=== PATIENT | female | born 1985 | race Caucasian/White ===

== ENCOUNTER 2016-07-19 20:38 | Emergency (ER) | payer OTHER ==
[~2016-07-19] VITALS: Ht 165.1 cm; Wt 86.1 kg
[~2016-07-19 20:38] MED LIST: AMOX500C2 PO; BACL10TA PO; GABA-338 PO; NEOM10DR7 LEFT EAR
--- OUTSIDE RECORDS SUMMARY | 2016-07-19 20:49 | XMS REPORT | Referral Summary ---
Author Author [facility] Organization [facility] Address Unknown Phone Unavailable Care Team Providers Care Fishing Worker Name Role Phone Drew Elam Primary Care Physician [phone] Encounter VC Date(s): 09/29/14 - 09/29/14 [facility] [address] [place] [address] Discharge Diagnosis: Chronic low back pain Final: Other chronic pain Final: LUMBAGO Discharge Disposition: 01-Home or Self Care Attending Physician: Ralf Lerner MD Admitting Physician: Ralf Lerner MD Vital Signs Most recent to 1 oldest [Reference Range]: Temperature Oral 37 degC [35.8-37.3 degC] (09/29/14 3:23 PM) Peripheral Pulse 89 bpm Rate [60-100 bpm] (09/29/14 4:28 PM) Respiratory Rate 18 br/min [14-20 br/min] (09/29/14 4:28 PM) Blood Pressure 129/91 mmHg [90-140/60-90 mmHg] (09/29/14 4:28 PM) SpO2 97 % (09/29/14 4:28 PM) Problem List Condition Effective Dates Status Health Status Informant Chicken Resolved pox(Confirmed) Ear Resolved infections(Confirmed ) Gastritis(Confirmed) Active Irritable bowel Resolved syndrome(Confirmed) IBS (irritable bowel Active syndrome)(Confirmed) Obesity(Confirmed) Active patient Allergies, Adverse Reactions, Alerts Substance Reaction Severity Status aspirin STOMACH UPSET Active caffeine STOMACH UPSET Active codeine STOMACH UPSET Active predniSONE Active Medications Cymbalta 60 mg oral delayed release capsule 1 caps, Oral, Daily, do not crush or chew, # 30 caps, 0 Refill(s), Pharmacy: [id number], 1 caps Oral Daily,Instr:do not crush or chew Start Date: 08/25/14 Status: Ordered ibuprofen 600 mg oral tablet 1 tabs, Oral, TID, with food or milk, # 90 tabs, 3 Refill(s), Pharmacy: [id number], 1 tabs Oral TID,Instr:with food or milk Start Date: 08/25/14 Status: Ordered Percocet 5/325 oral tablet 1 tabs, Oral, q6hr, 0 Refill(s) Start Date: 08/25/14 Status: Ordered tiZANidine 4 mg oral tablet 2 tabs, Oral, q8hr, as needed for muscle spasm, # 30 tabs, 1 Refill(s), Pharmacy : [id number], 2 tabs Oral q8hr,PRN:as needed for muscle spasm Start Date: 08/25/14 Status: Ordered Results No data available for this section Immunizations No data available for this section Procedures Procedure Date Related Diagnosis Body Site Bilateral coblation tonsillectomy Cholecystectomy Cortical mastoidectomy1 Exteriorization of pilonidal cyst or sinus Knee Surgery Release of carpal tunnel for median nerve decompression2 1left 2bilaterally Social History Social History Type Response Smoking Status Current every day smoker; Tobacco use per day: 1 Pack; Number of years: 9; Ready to change: No Assessment and Plan No data available for this section
--- OUTSIDE RECORDS SUMMARY | 2016-07-19 20:49 | XMS REPORT ---
Author Author Randolph Morley Organization [employer] Address Unknown Phone Unavailable Care Team Providers Care Software Team Leader Name Role Phone Randolph Morley CP Unavailable Allergies, Adverse Reactions, Alerts Substance Reaction Event Type Tylenol # 3 upset stomach Drug Allergy PEANUT Info Not Available Drug Allergy Demerol Info Not Available Drug Allergy Aspirin Info Not Available Drug Allergy Problems Problem Type Condition Code Onset Dates Condition Status Assessment Abscess of right axilla L02.411 Active Problem Abscess of right axilla L02.411 Active Medications No Known Medications Procedures Procedure Coding System Code Date Office visit estab lev 4 CPT-4 20209 Feb 07, 2016 Vital Signs Date/Time: Feb 07, 2016 Height - in Weight 186.9 lbs Temperature 97.1 F Cardiac Monitoring Heart Rate 61 /min Blood Pressure Diastolic 82 mm Hg Blood Pressure Systolic 130 mm Hg Results No Known Results Summary Purpose [employer] Submission
--- OUTSIDE RECORDS SUMMARY | 2016-07-19 20:49 | XMS REPORT | CCD ---
Author Author MARCI YUNG Organization Unknown Address [address], [place] [id number] Phone 0 Care Team Providers Care Pipe Coremaker Name Role Phone Yina FRAZIER Attending Physician 0 Yina FRAZIER Primary Surgeon 0 Vital Signs Vital Sign Value Unit Date/Time Recent/Initial? Weight Measured 190 lbs 10/17/2014 21:02 Initial VS Height 65 in 2014 21:02 Initial VS BMI (Body Mass Index) 31.62 kg/m^2 10/17/2014 21:02 Initial VS BSA (Body Surface Area) 1.99 m^2 10/17/2014 21:02 Initial VS Allergies Allergy Code Allergy Type Reaction Status CODEINE 2670 Drug allergy GASTRIC IRRITATION Active PEANUTS 0 Food allergy ANAPHYLAXIS Active MORPHINE 7052 Drug allergy NAUSEA Active ASPIRIN 1191 Drug allergy GASTRIC IRRITATION Active Procedures Unknown or Not Available. History of Immunizations Immunization Code Date Hep B, adult 43 02/16/2013 influenza, unspecified formulation 88 05/2012 tetanus toxoid, unspecified formulation 112 11/16/2012 Problems Unknown or Not Available. Results Unknown or Not Available. Active Medications Unknown or Not Available. Medications Administered During Visit Unknown or Not Available. Encounters Encounter Diagnosis Diagnosis Code Start Date CHR ALLRG CONJUNCTIV NEC 97217 2014 Social History Smoking Status Code Start Date End Date Current every day smoker [id number] Patient Decision Aids Unknown or Not Available. Discharge Instructions You were admitted to [facility] on 10/17/2014 with a principal diagnosis of CHR ALLRG CONJUNCTIV NEC. You were discharged from [facility] on 10/17/2014. Should you have any questions prior to discharge, please contact a member of your healthcare team. If you have left the hospital and have any questions, please contact your primary care physician. Chief Complaint and Reason For Visit Chief Complaint Date of Onset Redness or discharge of eye 10/17/2014 Function Status Unknown or Not Available. Plan of Care Unknown or Not Available. Referral/Transition of Care Unknown or Not Available.
--- OUTSIDE RECORDS SUMMARY | 2016-07-19 20:49 | XMS REPORT | Continuity of Care Document ---
Demographics Preferred Language Unknown Marital Status Unknown Gnosticism Affiliation Unknown Race Unknown Ethnic Group Unknown Author Author [facility] Organization [facility] Address Unknown Phone Unavailable Allergies Active Description Code Type Severity Reaction Onset Reported/Identified Relationship to Patient Clinical Status Yes acetaminophen acetaminophen Drug Allergy Unknown UNKNOWN 12/06/2013 Yes codeine codeine Drug Allergy Unknown UNKNOWN 12/06/2013 Yes aspirin aspirin Drug Allergy Mild REECE STOMACH 01/15/2016 Yes meperidine meperidine Drug Allergy Moderate HIVES 01/18/2016 Medications Problems Date Dx Coded Attending Type Code Diagnosis Diagnosed By 01/16/2016 LUIS M MCFARLAND MD K29.70 GASTRITIS, UNSPECIFIED, WITHOUT BLEEDING 01/16/2016 LUIS M MCFARLAND MD K58.9 IRRITABLE BOWEL SYNDROME WITHOUT DIARRHEA 01/16/2016 LUIS M MCFARLAND MD L02.213 CUTANEOUS ABSCESS OF CHEST WALL 01/16/2016 LUIS M MCFARLAND MD L02.411 CUTANEOUS ABSCESS OF RIGHT AXILLA 01/16/2016 LUIS M MCFARLAND MD N61 INFLAMMATORY DISORDERS OF BREAST 01/16/2016 LUIS M MCFARLAND MD T63.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, ACC 01/16/2016 LUIS M MCFARLAND MD Z90.49 ACQUIRED ABSENCE OF OTHER SPECIFIED PARTS OF DIGES Procedures Code Description Performed By Performed On [id number] DRAINAGE OF RIGHT BREAST, OPEN APPROACH LUIS M MCFARLAND MD 01/16/2016 [id number] DRAINAGE OF CHEST WALL, OPEN APPROACH LUIS M MCFARLAND MD 01/16/2016 [id number] PACKING OF CHEST WALL USING PACKING MATERIAL LUIS M MCFARLAND MD 01/16/2016 Results Test Result Range CBC W/DIFF - 03/19/13 20:09 BASOPHIL # 0.1 k/cumm 0.0-0.2 BASOPHIL % 1 % 0-1 EOSINOPHIL # 0.1 k/cumm 0.1-0.5 EOSINOPHIL % 1 % 2-4 GRANULOCYTE # 6.4 k/cumm 2.0-9.0 GRANULOCYTE % 62 % 50-75 LYMPHOCYTE # 2.9 k/cumm 1.0-4.0 LYMPHOCYTE % 29 % 20-30 MEAN CELL HGB 28.0 pg 27.0-33.0 MEAN CELL HGB CONCENTRATION 34.3 g/dL 32.0-37.0 MEAN CELL VOLUME 81.5 fl 80.0-100.0 MONOCYTE # 0.8 k/cumm 0.1-1.0 MONOCYTE % 8 % 4-6 RED BLOOD CELL 5.40 m/cumm 4.00-6.00 RED CELL DISTRIBUTION WIDTH 12.8 % 11.0- 15.6 WHITE BLOOD CELL 10.3 k/cumm 5.0-10.0 HEMOGLOBIN 15.1 gm/dL 12.0-16.0 HEMATOCRIT 44.0 % 37.0-47.0 PLATELET COUNT 302 k/cumm 150-400 HEPATIC FUNCTION PANEL - 03/19/13 20:09 BILI UNCONJUGATED 0.3 mg/dL 0.0-0.7 AST/SGOT 22 Units/L 10-37 ALT/SGPT 40 Units/L < 66 TOTAL PROTEIN 8.7 gm/dL 6.4-8.2 ALBUMIN 4.3 gm/dL 3.4-5.0 BILI TOTAL 0.4 mg/dL 0.0-1.0 ALKALINE PHOSPHATASE TOTAL 96 IU/L 45- 117 BILI CONJUGATED 0.1 mg/dL 0.0-0.3 LIPASE - 03/19/13 20:09 LIPASE 131 Units/L 73-393 CHEM/HEM PROFILE-BEDSIDE - 03/19/13 20:13 POTASSIUM 4.5 mmol/L 3.5-5.3 METHOD Bedside ANION GAP 16 mmol/L 10-20 METHOD Bedside GLUCOSE 81 mg/dL 70-99 BLOOD UREA NITROGEN 11 mg/dL 7-20 CREATININE 0.6 mg/dL 0.6-1.0 HEMOGLOBIN 14.6 gm/dL 12.0-16.0 HEMATOCRIT 43.0 % 37.0-47.0 SODIUM 139 mmol/L 135-148 CHLORIDE 104 mmol/L 98-110 CARBON DIOXIDE 25 mmol/L 21-32 CALCIUM IONIZED 4.8 mg/dL 4.5-5.3 UR TEST - 03/19/13 20:14 UR TEST NEGATIVE NEGATIVE URINALYSIS, ROUTINE - 03/19/13 20:14 UA LEUKOCYTE ESTERASE DIPSTICK NEGATIVE NEGATIVE UA NITRITE DIPSTICK NEGATIVE NEGATIVE UA PROTEIN DIPSTICK NEGATIVE NEGATIVE UA GLUCOSE DIPSTICK NEGATIVE NEGATIVE UA KETONE DIPSTICK NEGATIVE NEGATIVE UA UROBILINOGEN DIPSTICK NORMAL NORMAL UA BILIRUBIN DIPSTICK NEGATIVE NEGATIVE UA BLOOD DIPSTICK NEGATIVE NEGATIVE UA COMMENT UA SPECIFIC GRAVITY 1.025 1.015-1.025 UR PH 5.0 5.0-7.0 UA MICROSCOPIC - 03/19/13 20:14 UA EPITHELIAL CELLS 2+ epi/hpf 0 - 1+ UA MUCUS 2+ NEG TO 1+ UA RBC 0-3 rbc/hpf 0 - 3 UA VOLUME FOR EXAM 12.0 mL (12mL STD) UA WBC 2-5 wbc/hpf 0 - 5 UR TEST - 05/30/13 22:36 UR TEST NEGATIVE NEGATIVE URINALYSIS, ROUTINE - 05/30/13 22:36 UA LEUKOCYTE ESTERASE DIPSTICK NEGATIVE NEGATIVE UA NITRITE DIPSTICK NEGATIVE NEGATIVE UA PROTEIN DIPSTICK TRACE NEGATIVE UA GLUCOSE DIPSTICK NEGATIVE NEGATIVE UA KETONE DIPSTICK NEGATIVE NEGATIVE UA UROBILINOGEN DIPSTICK NORMAL NORMAL UA BILIRUBIN DIPSTICK NEGATIVE NEGATIVE UA BLOOD DIPSTICK NEGATIVE NEGATIVE UA COMMENT UA SPECIFIC GRAVITY 1.015 1.015-1.025 UR PH 6.5 5.0-7.0 UA MICROSCOPIC - 05/30/13 22:36 UA AMORPHOUS SEDIMENT 2+ UA BACTERIA 3+ NEGATIVE UA EPITHELIAL CELLS 2+ epi/hpf 0 - 1+ UA MUCUS 2+ NEG TO 1+ UA RBC 0-3 rbc/hpf 0 - 3 UA VOLUME FOR EXAM 12.0 mL (12mL STD) UA WBC 0 wbc/hpf 0 - 5 CBC W/DIFF - 05/30/13 23:25 EOSINOPHIL # 0.2 k/cumm 0.1-0.5 EOSINOPHIL % 2 % 2-4 GRANULOCYTE # 7.8 k/cumm 2.0-9.0 GRANULOCYTE % 61 % 50-75 LYMPHOCYTE # 3.7 k/cumm 1.0-4.0 LYMPHOCYTE % 29 % 20-30 MEAN CELL HGB 28.2 pg 27.0-33.0 MEAN CELL HGB CONCENTRATION 34.4 g/dL 32.0-37.0 MEAN CELL VOLUME 82.0 fl 80.0-100.0 MONOCYTE # 1.0 k/cumm 0.1-1.0 MONOCYTE % 8 % 4-6 RED BLOOD CELL 4.79 m/cumm 4.00-6.00 RED CELL DISTRIBUTION WIDTH 12.5 % 11.0- 15.6 WHITE BLOOD CELL 12.7 k/cumm 5.0-10.0 HEMOGLOBIN 13.5 gm/dL 12.0-16.0 HEMATOCRIT 39.3 % 37.0-47.0 PLATELET COUNT 317 k/cumm 150-400 WET MOUNT - 05/30/13 23:25 Uncategorized GRAM STAIN - CHLAMYDIA DNA BY PCR - 05/30/13 23:25 Uncategorized CHEM/HEM PROFILE-BEDSIDE - 05/30/13 23:34 POTASSIUM 3.7 mmol/L 3.5-5.3 METHOD Bedside ANION GAP 14 mmol/L 10-20 METHOD Bedside GLUCOSE 104 mg/dL 70-99 BLOOD UREA NITROGEN 6 mg/dL 7-20 CREATININE 0.6 mg/dL 0.6-1.0 HEMOGLOBIN 12.9 gm/dL 12.0-16.0 HEMATOCRIT 38.0 % 37.0-47.0 SODIUM 140 mmol/L 135-148 CHLORIDE 107 mmol/L 98-110 CARBON DIOXIDE 24 mmol/L 21-32 CALCIUM IONIZED 4.6 mg/dL 4.5-5.3 GRAM STAIN - 01/17/16 00:00 Microbiology CBC W/DIFF - 01/17/16 05:53 EOSINOPHIL # 0.3 k/cumm 0.1-0.5 EOSINOPHIL % 3 % 2-4 GRANULOCYTE # 4.9 k/cumm 2.0-9.0 GRANULOCYTE % 57 % 50-75 LYMPHOCYTE # 2.7 k/cumm 1.0-4.0 LYMPHOCYTE % 31 % 20-30 MEAN CELL HGB 27.8 pg 27.0-33.0 MEAN CELL HGB CONCENTRATION 33.8 g/dL 32.0-37.0 MEAN CELL VOLUME 82.2 fl 80.0-100.0 MONOCYTE # 0.7 k/cumm 0.1-1.0 MONOCYTE % 8 % 4-6 RED BLOOD CELL 4.28 m/cumm 4.00-6.00 RED CELL DISTRIBUTION WIDTH 12.7 % 11.0- 15.6 WHITE BLOOD CELL 8.6 k/cumm 5.0-10.0 HEMOGLOBIN 11.9 gm/dL 12.0-16.0 HEMATOCRIT 35.2 % 37.0-47.0 PLATELET COUNT 302 k/cumm 150-400 HEMOGLOBIN A1C - 01/17/16 05:53 HEMOGLOBIN A1C 5.1 % < 5.7 RENAL FUNCTION PANEL - 01/17/16 05:53 POTASSIUM 3.9 mmol/L 3.5-5.3 EST GFR (MDRD) > 60 mL/min > 59 ANION GAP 6 mmol/L 5-15 EST CrCl (CG) > 60 mL/min > 59 GLUCOSE 99 mg/dL 70-99 CALCIUM 8.5 mg/dL 8.5-10.1 BLOOD UREA NITROGEN 7 mg/dL 7-20 CREATININE 0.7 mg/dL 0.6-1.0 SODIUM 140 mmol/L 135-148 CHLORIDE 107 mmol/L 98-110 CARBON DIOXIDE 27 mmol/L 21-32 ALBUMIN 2.8 gm/dL 3.4-5.0 PHOSPHORUS 3.4 mg/dL 2.5-4.9 MAGNESIUM - 01/17/16 05:53 MAGNESIUM 2.3 mg/dL 1.8-2.4 TEST, SERUM - 01/17/16 09:26 TEST, SERUM NEGATIVE NEGATIVE CBC - 01/18/16 05:16 MEAN CELL HGB 27.9 pg 27.0-33.0 MEAN CELL HGB CONCENTRATION 33.6 g/dL 32.0-37.0 MEAN CELL VOLUME 82.9 fl 80.0-100.0 RED BLOOD CELL 4.16 m/cumm 4.00-6.00 RED CELL DISTRIBUTION WIDTH 12.8 % 11.0- 15.6 WHITE BLOOD CELL 8.3 k/cumm 5.0-10.0 HEMOGLOBIN 11.6 gm/dL 12.0-16.0 HEMATOCRIT 34.5 % 37.0-47.0 PLATELET COUNT 312 k/cumm 150-400 CBC - 01/19/16 05:52 MEAN CELL HGB 27.6 pg 27.0-33.0 MEAN CELL HGB CONCENTRATION 33.1 g/dL 32.0-37.0 MEAN CELL VOLUME 83.1 fl 80.0-100.0 RED BLOOD CELL 4.21 m/cumm 4.00-6.00 RED CELL DISTRIBUTION WIDTH 12.7 % 11.0- 15.6 WHITE BLOOD CELL 7.3 k/cumm 5.0-10.0 HEMOGLOBIN 11.6 gm/dL 12.0-16.0 HEMATOCRIT 35.0 % 37.0-47.0 PLATELET COUNT 347 k/cumm 150-400 Encounters ACCT No. Visit Date/Time Discharge Status Pt. Type Provider Facility Loc./Unit Complaint [id number] 07/04/2016 15:11:00 [facility] Unknown [id number] 03/25/2016 14:04:00 ACT Unknown [id number] 01/10/2014 10:37:00 ACT Unknown [id number] 11/25/2013 08:54:00 ACT Unknown
--- OUTSIDE RECORDS SUMMARY | 2016-07-19 20:49 | XMS REPORT | CCD ---
Author Author ERICK GUADALUPE Organization Unknown Address [address], [place] [id number] Phone 0 Care Team Providers Care Clipper Automatic Name Role Phone KIMBERLI HALL Attending Physician 0 KIMBERLI HALL Primary Surgeon 0 Vital Signs Vital Sign Value Unit Date/Time Recent/Initial? Weight Measured 195 lbs 12/06/2015 22:26 Initial VS Height 65 in 2015 22:26 Initial VS BMI (Body Mass Index) 32.45 kg/m^2 12/06/2015 22:26 Initial VS BSA (Body Surface Area) 2.01 m^2 12/06/2015 22:26 Initial VS Allergies Allergy Code Allergy Type [...] Encounters Encounter Diagnosis Diagnosis Code Start Date Pain in right knee [id number] 12/06/2015 Social History Smoking Status Code Start Date End Date Current every day smoker [id number] Patient Decision Aids Unknown or Not Available. Discharge Instructions You were admitted to [facility] on 12/06/2015 21:30 with a principal diagnosis of Pain in right knee You were discharged from [facility] on 12/06/2015 23:50 Should you have any questions prior to discharge, please contact a member of your healthcare team. If you have left the hospital and have any questions, please contact your primary care physician. Chief Complaint and Reason For Visit Chief Complaint Date of Onset HARD LUMP ON LEG Function Status Unknown or Not Available. Plan of Care Unknown or Not Available. Referral/Transition of Care Unknown or Not Available.
--- OUTSIDE RECORDS SUMMARY | 2016-07-19 20:49 | XMS REPORT | CCD ---
Author Author ERICK GUADALUPE Organization Unknown Address [address], [place] [address] Phone 0 Care Team Providers Care Pumper Helper Name Role Phone Tad ANDERSON Attending Physician 0 Tad ANDERSON Primary Surgeon 0 Vital Signs Unknown or Not Available. Allergies Allergy Code Allergy Type Reaction Status PEANUTS 0 Food allergy ANAPHYLAXIS Active ASPIRIN 1191 Drug allergy GASTRIC IRRITATION Active DEMEROL 723040 Drug allergy Active Procedures Unknown or Not Available. History of Immunizations Immunization Code Date Hep B, adult 43 02/16/2013 influenza, unspecified formulation 88 05/2012 tetanus toxoid, unspecified formulation 112 11/16/2012 Problems Unknown or Not Available. Results BASIC METABOLIC - Collect Date/Time: 06/25/2016 16:25 Test Name Code Test Result Test Units Test Ref Range GLUCOSE 130 mg/dL L=70 H=110 BUN 8 mg/dL L=7 H=18 CREATININE 0.69 mg/ dL L=0.60 H=1.30 AGE 30 YEARS GFR 101.3 L=60.0 H=120 SODIUM 144 mmol/L L=136 H=145 POTASSIUM 3.9 mmol/ L L=3.5 H=5.1 CHLORIDE 107 mmol/L L=98 H=107 CO2 29 mmol/L L=21 H=32 CALCIUM 8.7 mg/dL L=8.5 H=10.1 C-REACTIVE PROTEIN - Collect Date/Time: 06/25/2016 16:25 Test Name Code Test Result Test Units Test Ref Range CRP 3 mg/L L=0 H=5 CBC W/ DIFF - Collect Date/Time: 06/25/2016 16:25 Test Name Code Test Result Test Units Test Ref Range WBC 8.1 x10^3 L=4.8 H=10.8 RBC 4.79 x10^6 L=4.20 H=5.40 HEMOGLOBIN 13.3 g/ dL L=12.0 H=16.0 HEMATOCRIT 38.9 % L=37.0 H=47.0 MCV 81 fL L=80 H=100 MCH 27.8 pg L=27.0 H=33.0 MCHC 34.2 g/dL L=33.0 H=37.0 RDW 12.5 % L=11.5 H=14.5 PLATELETS 293 x10^3 L=150 H=450 MPV 7.2 fL L=7.8 H=11.0 NEUTROPHILS 71.1 % L=40.0 H=80.0 LYMPHOCYTES 24.2 % L=20.0 H=45.0 MONOCYTES 3.8 % L=0.0 H=10.0 EOSINOPHILS 0.6 % L=0.0 H=5.0 BASOPHILS 0.3 % L=0.0 H=2.0 REFLEX MAN DIFF NO N /A UA AUTO W/ MICRO - Collect Date/Time: 06/25/2016 16:41 Test Name Code Test Result Test Units Test Ref Range COLOR Yellow N/A NORMAL: Yellow APPEARANCE Clear N/ A NORMAL: Clear GLUCOSE Negative N/ A NORMAL: Negative BILIRUBIN Negative N /A NORMAL: Negative KETONE 15 N/A NORMAL: Negative SPEC GRAVITY 1.025 N /A NORMAL: 1.005-1.030 BLOOD Negative N/A NORMAL: Negative PROTEIN Negative N/ A NORMAL: Negative PH 6.5 N/A NORMAL: 5.0-8.0 UROBILINOGEN 0.2 N/ A NORMAL: Negative NITRITE Negative N/ A NORMAL: Negative LEUKOCYTES Negative N/A NORMAL: Negative MICRO RBC None Seen N/A NORMAL: 0-2 MICRO WBC 0-2 N/A NORMAL: 0-2 BACTERIA 2+ N/A NORMAL: None-Trace EPI CELLS 15-30 N/A NORMAL: 0-15 MUCUS Small N/A NORMAL: None-Small AMORPHOUS None Seen N/A NORMAL: None Seen YEAST None Seen N/A NORMAL: None Seen CRYSTALS None Seen N /A NORMAL: None Seen CAST None Seen N/A NORMAL: None Seen URINE CULTURE? NO N/ A HCG-QUAL URINE - Collect Date/Time: 06/25/2016 16:35 Test Name Code Test Result Test Units Test Ref Range HCG URINE NEGATIVE N /A AEROBIC BACTERIAL CULTURE - Collect Date/Time: 06/25/2016 18:10 Test Name Code Test Result Test Units Test Ref Range SPEC SOURCE L EAR DRAINAG N/A Aerobic Bacterial Culture 634-6 Final report N/A Result 1 6463-4 Staphylococcus aureus N/A Active Medications Unknown or Not Available. Medications Administered During Visit Unknown or Not Available. Encounters Unknown or Not Available. Social History Smoking Status Code Start Date End Date Current every day smoker [id number] Patient Decision Aids Unknown or Not Available. Discharge Instructions You were admitted to [facility] on 06/25/2016 15:24 You had the following tests done: AEROBIC BACTERIAL CULTURE BASIC METABOLIC C-REACTIVE PROTEIN CBC W/ DIFF HCG-QUAL URINE UA AUTO W/ MICRO You were discharged from [facility] on 06/25/2016 17:35 Should you have any questions prior to discharge, please contact a member of your healthcare team. If you have left the hospital and have any questions, please contact your primary care physician. Chief Complaint and Reason For Visit Chief Complaint Date of Onset LEFT EAR PAIN Function Status Unknown or Not Available. Plan of Care Unknown or Not Available. Referral/Transition of Care Unknown or Not Available.
--- OUTSIDE RECORDS SUMMARY | 2016-07-19 20:49 | XMS REPORT | Continuity of Care Document ---
Author Author [facility] Organization [facility] Address Unknown Phone Unavailable Support Name Relationship Address Phone CRISTINE AMARO M.D. Caregiver [employer] [address] [place], [place] [phone] JAZZY CROSS Next Of Kin [address] NO ONE ELSE 11/[birth year]/14 [place] [address] CELL Insurance Providers Payer Name Policy Number Subscriber Name Relationship Self Pay Insurance [employer] 01 Self / Same As Patient Chief Complaint and Reason for Visit Chief Complaint Flank Pain Reason for Visit Acute exacerbation of chronic low back pain Flank pain Cystitis Problems Medical Problems Problem Onset Date Status Acute exacerbation of chronic low back pain Unknown Active Flank pain Unknown Active Cystitis Unknown Active Acute exacerbation of chronic low back pain Unknown Active Medications Medication Dose Route Sig Days/Qty Instructions Order Date Discontinued Date Status Gabapentin 300 Mg PO THREE TIMES A DAY 11/23/14 Active Baclofen 10 Mg PO THREE TIMES A DAY 11/23/14 Active Tramadol Hcl 50 Mg PO Every 8 hours as needed PRN PAIN 10 Qty 11/23/14 11/23/14 Discontinued Sulfamethoxazole-Trimethoprim 1 Tab PO TWICE A DAY For BACTINF 28 Qty 11/23/14 11/23/14 Discontinued Sulfamethoxazole-Trimethoprim 1 Tab PO TWICE A DAY For BACTINF 14 Qty 11/23/14 Active Social History Social History Problem Response Recorded Date/Time Smoking Status Heavy Tobacco Smoker 11/23/2014 8:57pm Query Response Start Date Stop Date Smoking Status Heavy Tobacco Smoker Hospital Discharge Instructions No hospital discharge instructions. Plan of Care Discharge Date 11/23/14 10:06pm Disposition 01 HOME, SELF-CARE Condition at Discharge Stable Instructions/Education Provided Urinary Tract Infection in Women (ED) Acute Low Back Pain (ED) Prescriptions See Medications Section Additional Instructions/Education Complete antibiotic course. Use Zofran for nausea. Call the ER tomorrow to get pending STD test results. Follow up with your regular doctor next week if without improvement. Functional Status No functional status results. Allergies, Adverse Reactions, Alerts Allergen Type Severity Reaction Status Last Updated Aspirin Allergy Unknown IRRITATION TO STOMACH DUE TO GASTRITIS Active 12/31 PEANUTS Allergy Unknown PER SKIN TEST -- BUT EATS PEANUTS Active 11/23/14 Immunizations No immunization records. Vital Signs Acute Vital Signs Vital Response Date/Time Blood Pressure 135/91 mm Hg Blood Pressure Mean 106 mm Hg Temperature (Fahrenheit) 98.3 degrees F (96.0 - 99.9) Temperature (Calculated Celsius) 36.76756 degrees C Temperature Source Oral Pulse Pulse Rate: ED 88 bpm Respiratory Rate 20 breaths per minute (10 - 20) Height (Feet) 5 ft Height (Inches) 5 in. Weight (Pounds) 192 lbs Height 5 ft 5 in Weight 192 lb Body Mass Index 32.0 kg/m^2 Results Test Source Date Result Interp. Ref. Range Comments Urine Leukocyte Esterase November 23, 2014 9:32pm Negative NEGATIVE SOURCE: URINE, CLEAN CATCH Urine Nitrate November 23, 2014 9:32pm Negative NEGATIVE SOURCE: URINE, CLEAN CATCH Urine Urobilinogen November 23, 2014 9:32pm 0.2 E.U./dL 0.2-1.0 SOURCE: URINE, CLEAN CATCH Urine Protein November 23, 2014 9:32pm Negative NEGATIVE SOURCE: URINE, CLEAN CATCH Urine pH November 23, 2014 9:32pm 6.5 4.5-8.0 SOURCE: URINE, CLEAN CATCH Urine Occult Blood November 23, 2014 9:32pm Negative NEGATIVE SOURCE: URINE, CLEAN CATCH Urine Specific [place] November 23, 2014 9:32pm 1.020 1.005-1.030 SOURCE : URINE, CLEAN CATCH Urine Ketones November 23, 2014 9:32pm Negative NEGATIVE SOURCE: URINE, CLEAN CATCH Urine Bilirubin November 23, 2014 9:32pm Negative NEGATIVE SOURCE: URINE , CLEAN CATCH Urine Glucose (UA) November 23, 2014 9:32pm Negative NEGATIVE SOURCE: URINE, CLEAN CATCH Urine Appearance November 23, 2014 9:32pm Clear SOURCE: URINE, CLEAN CATCH Urine Color November 23, 2014 9:32pm Yellow SOURCE: URINE, CLEAN CATCH Urine Human Chorionic Gonadotropin November 23, 2014 9:32pm Negative NEGATIVE Procedures No known history of procedures. Encounters Encounter Location Date/Time Departed Emergency Room [facility] 11/23/14 8:52pm Recent Diagnosis
--- OUTSIDE RECORDS SUMMARY | 2016-07-19 20:49 | XMS REPORT | Continuity of Care Document ---
Author Author [facility] Organization [facility] Address Unknown Phone Unavailable Support Name Relationship Address Phone JOSIAH MENDIETA Caregiver [facility] [address] [place] [address] FRANCIA GOMES MD Caregiver [address] [place] [address] [place] [phone] ELVA BATES Next Of Kin [address] [place] [address] Insurance Providers Payer Name Policy Number Subscriber Name Relationship Self Pay Chicho Bates 20 Self Advance Directives Directive Response Recorded Date/Time Advanced Directives Type None 05/29/14 9:07pm Problems Medical Problems Problem Onset Date Status Ear pain Unknown Active Otitis media Unknown Active Vertigo Unknown Active Ear pain Unknown Active Diarrhea Unknown Active Abdominal pain Unknown Active Nausea & vomiting Unknown Active Diarrhea Unknown Active Sinusitis Unknown Active Nausea & vomiting Unknown Active Medications Medication Dose Route Sig Days/Qty Instructions Order Date Discontinued Date Status Amox Tr/Potassium Clavulanate 1 Tab PO TWICE A DAY 07/12/11 Discontinued Hydrocodone Bit/Acetaminophen 1 Tab PO NEEDED 07/12/11 01/07/12 Discontinued Multivitamins 1 Tab PO DAILY 07/12/11 01/07/12 Discontinued Ciprofloxacin Hcl/Dexameth 7.5 Ml OT 03/10/12 04/15/12 Discontinued Hydrocodone Bit/Acetaminophen EVERY 4-6 HOURS PRN 04/15/1205/21 Discontinued [none] 05/21/12 09/02/13 Discontinued Ibuprofen 800 Mg PO NEEDED 09/09/13 Active Oxycodone HCl/Acetaminophen 5 Mg PO NEEDED PRN PAIN Take 1 tablet, by mouth, every 4 hours as needed for pain. 05/29/14 Active Amoxicillin 2 Tab PO TWICE A DAY 40 Qty 05/29/14 Active Social History Social History Problem Response Recorded Date/Time Chewing Tobacco Status No 09/09/2013 10:53pm Hx Substance Use No 09/09/2013 10:53pm Hx Alcohol Use No 05/29/2014 9:27pm Has the pt used tobacco in the last 12 months Yes 05/18/2012 9:23am Tobacco Usage smoke 09/02/2013 12:57am Query Response Start Date Stop Date Smoking Status Current every day smoker Hospital Discharge Instructions No hospital discharge instructions. Plan of Care No plan of care. Functional Status Query Response Date Recorded Physical Hygiene Self May 29, 2014 9:27pm Disabilities None May 29, 2014 9:27pm Devices Used None May 29, 2014 9:27pm Dressing Self May 29, 2014 9:27pm Ambulation Self May 29, 2014 9:27pm Diet Self May 29, 2014 9:27pm Mental Status Alert May 29, 2014 11:36pm Disabilities None May 29, 2014 9:27pm Devices Used None May 29, 2014 9:27pm Physical Hygiene Self May 29, 2014 9:27pm Dressing Self May 29, 2014 9:27pm Ambulation Self May 29, 2014 9:27pm Diet Self May 29, 2014 9:27pm Allergies, Adverse Reactions, Alerts Allergen Type Severity Reaction Status Last Updated Codeine Allergy Unknown Active 05/29/14 Aspirin Allergy Unknown STOMACH REECE Active 05/29/14 Tramadol Allergy Unknown STOMACH REECE Active 05/29/14 Immunizations Name Given Type Hx Influenza Vaccination Y 02/2014 Historical Hx Pneumococcal Vaccination No Historical Hx Influenza Vaccination Y 02/2014 Historical Vital Signs Acute Vital Signs Vital Response Date/Time Temperature (Fahrenheit) 97.4 deg F (96.8 - 99.1) Temperature (Calculated Celsius) 36.47929 degrees C (36.0 - 37.3) Pulse Rate (adult) 74 bpm (60 - 100) Respiratory Rate 12 breaths/min (10 - 20) O2 Sat by Pulse Oximetry 97 % (90 - 100) Blood Pressure 121/76 mm Hg Height 5 ft 5 in Weight 200 lb Body Mass Index 33.0 kg/m^2 Results Test Source Date Result Interp. Ref. Range Comments Activated Partial Thromboplast Time January 07, 2012 1:35am 25.3 SEC N 24 -36 Alanine Aminotransferase (ALT/SGPT) May 29, 2014 9:54pm 42 U/L N 9- 52 Albumin May 29, 2014 9:54pm 4.7 G/DL N 3.5-5.0 Albumin/Globulin Ratio May 29, 2014 9:54pm 1.4 RATIO N 1.1-2.2 Alkaline Phosphatase May 29, 2014 9:54pm 81 U/L N 38-126 Amylase Level May 29, 2014 9:54pm 47 U/L N 30-110 Anion Gap May 29, 2014 9:54pm 10 MEQ/L N 5-15 Anti-Nuclear Antibody (LAB) January 07, 2012 1:35am Ref lab rpt scanned - --- 01/08/12 0945 ---NUZHAT previously reported as: SENT OUT Aspartate Amino Transf (AST/SGOT) May 29, 2014 9:54pm 25 U/L N 14- 36 BUN/Creatinine Ratio May 29, 2014 9:54pm 13 RATIO N 6-26 Basophils # (Auto) May 29, 2014 9:54pm 0.1 T/MM3 N 0-0.2 Basophils (%) (Auto) May 29, 2014 9:54pm 0.9 % N 0-2 Blood Urea Nitrogen May 29, 2014 9:54pm 8.0 MG/DL N 7-17 Calcium Level May 29, 2014 9:54pm 10.0 MG/DL N 8.4-10.2 Calculated Osmolality May 29, 2014 9:54pm 269 MOSM/KG N 261-280 Carbon Dioxide Level May 29, 2014 9:54pm 28 MEQ/L N 22-30 Chemistry Specimen Hemolysis May 29, 2014 9:54pm < 15 0-25 0-25: No Hemolysis.26-70: Slight Hemolysis - can falsely elevate K and Urine Protein. 71-285: Moderate Hemolysis - can falsely elevate K, Troponin I, CA 19-9, PTH, CSF GLucose, and Urine Protein, and can falsely decrease Phenytoin. 286-999: Gross Hemolysis - can falsely elevate K, Troponin I, CA 19-9, PTH, CSF Glucose, and Urine Protine, and can falsely decrease Phenytoin. Recommend specimen recollection. Chloride Level May 29, 2014 9:54pm 103 MEQ/L N 98-107 Creatinine May 29, 2014 9:54pm 0.6 MG/DL L 0.7-1.2 Eosinophils # (Auto) May 29, 2014 9:54pm 0.2 T/MM3 N 0-0.5 Eosinophils (%) (Auto) May 29, 2014 9:54pm 1.6 % N 0-4 Globulin May 29, 2014 9:54pm 3.3 G/DL N 2.4-3.6 Glomerular Filtration Rate Calc May 29, 2014 9:54pm 121 - Glucose Level May 29, 2014 9:54pm 98 MG/DL N 65-110 Hematocrit May 29, 2014 9:54pm 40.3 % N 36-46 Hemoglobin May 29, 2014 9:54pm 14.0 GM/DL N 12-16 Icterus Index May 29, 2014 9:54pm < 2 0-7 Immature Granulocyte # (Auto) May 29, 2014 9:54pm 0.04 T/MM3 H 0.00- 0.03 Immature Granulocyte % (Auto) May 29, 2014 9:54pm 0.4 % N 0.0-0.5 Influenza Type A Antigen May 29, 2014 9:56pm Negative - Negative for Flu A protein antigen. Assay sensitivity is90%. Influenza Type B Antigen May 29, 2014 9:56pm Negative - Negative for Flu B protein antigen. Assay sensitivity is90%. Lab Scanned Report January 08, 2012 9:58am REFERENCE LAB [id number] - Lipase May 29, 2014 9:54pm 63 U/L N 23-300 Lymphocytes # (Auto) May 29, 2014 9:54pm 3.1 T/MM3 N 1-4.8 Lymphocytes (%) (Auto) May 29, 2014 9:54pm 30.7 % N 23-45 Mean Corpuscular Hemoglobin May 29, 2014 9:54pm 28.9 UUG N 26-34 Mean Corpuscular Hemoglobin Concent May 29, 2014 9:54pm 34.7 GM/DL N 31-37 Mean Corpuscular Volume May 29, 2014 9:54pm 83.1 UM3 N 80-100 Mean Platelet Volume May 29, 2014 9:54pm 9.0 UM3 L 9.4-12.4 Monocytes # (Auto) May 29, 2014 9:54pm 0.7 T/MM3 N 0-0.8 Monocytes (%) (Auto) May 29, 2014 9:54pm 6.6 % N 0-9.0 Monoscreen January 07, 2012 1:35am Negative - Neutrophils # (Auto) May 29, 2014 9:54pm 6.1 T/MM3 N 1.8-7.7 Neutrophils (%) (Auto) May 29, 2014 9:54pm 59.8 % N 33-66 Platelet Count May 29, 2014 9:54pm 320 T/MM3 N 130-400 Potassium Level May 29, 2014 9:54pm 3.7 MEQ/L N 3.6-5 Prothromb Time International Ratio January 07, 2012 1:35am 0.91 N 0.86- 1.10 THERAPUTIC RANGE=2.00-3.00 FOR ANTI-THROMBOSIS THERAPUTIC RANGE=2.50- 3.50 FOR IMPLANTED VALVE RDW Standard Deviation May 29, 2014 9:54pm 38.0 FL N 36.9-50.2 Red Blood Count May 29, 2014 9:54pm 4.85 M/MM3 N 4.00-5.20 Rheumatoid Factor January 07, 2012 1:35am < 9 IU/ML 0-11 Sodium Level May 29, 2014 9:54pm 141 MEQ/L N 134-144 Total Bilirubin May 29, 2014 9:54pm 0.60 MG/DL N 0.20-1.30 Total Protein May 29, 2014 9:54pm 8.0 G/DL N 6.3-8.2 Troponin I January 07, 2012 1:35am < 0.012 ng/ml 0-0.12 Turbidity May 29, 2014 9:54pm < 20 0-20 Urinalysis Comment May 29, 2014 9:40pm Microscopic not ind. - Has specimen been collected/obtained? Y Urine Bilirubin May 29, 2014 9:40pm Negative - Has specimen been collected/obtained? Y Urine Blood May 29, 2014 9:40pm Negative - Has specimen been collected/obtained? Y Urine Collection Type May 29, 2014 9:40pm Cleancatch-midstream - Has specimen been collected/obtained? Y Urine Color May 29, 2014 9:40pm Yellow - Has specimen been collected/obtained? Y Urine Glucose (UA) May 29, 2014 9:40pm Negative - Has specimen been collected/obtained? Y Urine Ketones May 29, 2014 9:40pm Negative - Has specimen been collected/obtained? Y Urine Leukocyte Esterase May 29, 2014 9:40pm Negative - Has specimen been collected/obtained? Y Urine Microscopic Not Indicated January 07, 2012 4:15am Not indicated - Has specimen been collected/obtained? Y Urine Nitrite May 29, 2014 9:40pm Negative - Has specimen been collected/obtained? Y Urine Protein May 29, 2014 9:40pm Negative - Has specimen been collected/obtained? Y Urine Specific [place] May 29, 2014 9:40pm 1.015 - Has specimen been collected/obtained? Y Urine Turbidity May 29, 2014 9:40pm Clear - Has specimen been collected/obtained? Y Urine Urobilinogen May 29, 2014 9:40pm 0.2 EU/DL - Has specimen been collected/obtained? Y Urine pH May 29, 2014 9:40pm 6.5 - Has specimen been collected/ obtained? Y White Blood Count May 29, 2014 9:54pm 10.2 T/MM3 N 4.5-11.0 Procedures No known history of procedures. Encounters Encounter Location Date/Time Registered Emergency Room [facility] 05/29/14 4:35pm Recent Diagnosis
--- OUTSIDE RECORDS SUMMARY | 2016-07-19 20:50 | XMS REPORT | Continuity of Care Document ---
Author Author [facility] Organization [facility] Address Unknown Phone Unavailable Support Name Relationship Address Phone CLIENT, BILLING Caregiver Unknown Unavailable JOSIAH MENDIETA Caregiver [facility] [address] [place] [address] ELVA BATES Next Of Kin [address] [place] [address] Insurance Providers Payer Name Policy Number Subscriber Name Relationship Self Pay Chicho Bates 18 Self Problems Medical Problems Problem Onset Date Status Ear pain Unknown Active Otitis media Unknown Active Vertigo Unknown Active Ear pain Unknown Active Diarrhea Unknown Active Abdominal pain Unknown Active Nausea & vomiting Unknown Active Diarrhea Unknown Active Sinusitis Unknown Active Nausea & vomiting Unknown Active Back sprain or strain Unknown Active Back sprain or strain Unknown Active Medications Medication Dose Route Sig Days/Qty Instructions Order Date Discontinued Date Status Amox Tr/Potassium Clavulanate 1 Tab PO TWICE A DAY 07/12/11 Discontinued Hydrocodone Bit/Acetaminophen 1 Tab PO NEEDED 07/12/11 01/07/12 Discontinued Multivitamins 1 Tab PO DAILY 07/12/11 01/07/12 Discontinued Ciprofloxacin Hcl/Dexameth 7.5 Ml OT 03/10/12 04/15/12 Discontinued Hydrocodone Bit/Acetaminophen EVERY 4-6 HOURS PRN 04/15/1205/21 Discontinued [none] 05/21/12 09/02/13 Discontinued Oxycodone HCl/Acetaminophen 5 Mg PO NEEDED PRN PAIN Take 1 tablet, by mouth, every 4 hours as needed for pain. 05/29/14 Active Social History Social History Problem Response Recorded Date/Time Chewing Tobacco Status No 09/09/2013 10:53pm Hx Substance Use No 08/23/2014 7:23pm Hx Alcohol Use No 08/23/2014 7:23pm Has the pt used tobacco in the last 12 months Yes 05/18/2012 9:23am Tobacco Usage smoke 09/02/2013 12:57am Query Response Start Date Stop Date Smoking Status Current every day smoker Hospital Discharge Instructions No hospital discharge instructions. Plan of Care No plan of care. Functional Status Query Response Date Recorded Physical Hygiene Self August 23, 2014 7:23pm Physical Hygiene Self August 23, 2014 7:23pm Allergies, Adverse Reactions, Alerts Allergen Type Severity Reaction Status Last Updated Codeine Allergy Unknown Active 05/29/14 Aspirin Allergy Unknown STOMACH REECE Active 05/29/14 Tramadol Allergy Unknown STOMACH REECE Active 05/29/14 Immunizations Name Given Type Hx Influenza Vaccination Y 02/2014 Historical Hx Pneumococcal Vaccination No Historical Hx Influenza Vaccination Y 02/2014 Historical Vital Signs Acute Vital Signs Vital Response Date/Time Temperature (Fahrenheit) 98.6 deg F (96.8 - 99.1) Temperature (Calculated Celsius) 37.82713 degrees C (36.0 - 37.3) Pulse Rate (adult) 64 bpm (60 - 100) Respiratory Rate 18 breaths/min (10 - 20) O2 Sat by Pulse Oximetry 97 % (90 - 100) Blood Pressure 113/72 mm Hg Results Test Source Date Result Interp. Ref. [...] Report January 08, 2012 9:58am REFERENCE LAB [id number] - Lipase May 29, 2014 9:54pm 63 [...] Has specimen been collected/obtained? Y Urine Specific [place] May 29, 2014 9:40pm 1.015 - Has specimen been collected/obtained? Y Urine Turbidity May 29, 2014 9:40pm Clear - Has specimen been collected/obtained? Y Urine Urobilinogen May 29, 2014 9:40pm 0.2 EU/DL - Has specimen been collected/obtained? Y Urine pH May 29, 2014 9:40pm 6.5 - Has specimen been collected/ obtained? Y White Blood Count May 29, 2014 9:54pm 10.2 T/MM3 N 4.5-11.0 Name: CHICHO BATES Unit #: [id number] : 1985 Sex: F Loc / Svc: ED DOS: 05/29/14 Signed Report #: [id number] DIAGNOSTIC IMAGING REPORT TYPE OF EXAM: CT ABD/PELVIS W/CONTRAST ONLY Dictated By: LETI FAIRBANKS MD INDICATION: ITS.REASON: RIGHT LOWER QUADRANT ABDOMINAL PAIN, NAUSEA CT ABD/PELVIS W/CONTRAST ONLY: Comparison: None Technique: Axial CT images were performed through the abdomen and pelvis after the administration of intravenous contrast. Contrast: Omnipaque 300 100 mL Findings: The lung bases are clear. The liver is normal. Gallbladder is surgically absent. The spleen, pancreas and adrenal glands are within normal limits. The kidneys are normal. No abdominal or pelvic lymphadenopathy. Mildly prominent ovarian cysts. Bladder is normal. No free fluid. The small and large bowel are within normal limits. Appendix is normal. Bone windows are within normal limits. Impression: No acute disease process seen in the abdomen or pelvis. There is a preliminary report by virtual radiologic. . Procedures Procedure Status Date Provider(s) HYDRATE IV INFUSION ADD-ON completed 05/29/14 THER/PROPH/DIAG INJ IV PUSH completed 05/29/14 Encounters Encounter Location Date/Time Departed Emergency Room [facility] 08/23/14 7:02pm Departed Emergency Room [facility] 05/29/14 4:35pm
[2016-07-19 21:07] VITALS: Ht 165.1 cm; Wt 86.1 kg
--- NOTE | 2016-07-19 21:32 | ERPDOC ---
Departure Disposition Decision Date: Jul 19, 2016 Disposition Decision Time: 23:58 (DONNA CAMACHO APRN) Disposition: 01 DISCHARGED HOME, SELF-CARE Impression Impression (HERMELINDA CHO MD) Impression: Primary Impression: Viral illness Severity Details moderate (DONNA CAMACHO APRN) Condition: Stable Seen By: Mid-level only (DONNA CAMACHO APRN) Referrals: [facility] 1 Week Patient Instructions: Oral Herpes Simplex Virus Infections (ED), Viral Syndrome (ED) Problems/Meds/Labs Reviewed?: Yes Medications reviewed and manag: Yes (DONNA CAMACHO APRN) Additional Instructions: YOUR BLOOD WORK DOES NOT INDICATE A BACTERIAL INFECTION . BASED ON YOUR EXAM, IT APPEARS THAT YOUR ORAL SORES ARE DUE TO A VIRAL INFECTION. Follow up care ordered?: Yes Mental Status: Alert, Oriented (DONNA CAMACHO APRN) Scripts Ondansetron (Zofran Odt) 4 Mg Tab.rapdis 4 MG PO Q6HR for NAUSEA, #10 TAB Oral disintegrating tablet Prov: DONNA CAMACHO APRN 07/20/16 Acyclovir (Acyclovir) 800 Mg Tablet 1 TAB PO 5XD for 10 Days, #50 TAB Prov: DONNA CAMACHO APRN 07/20/16 HPI - Skin General General Chief Complaint: Skin Rash/Abscess Stated Complaint: POSSIBLE STAPH ON FACE/AND EARS Time Seen by Provider: 21:31 (HERMELINDA CHO MD) Source: patient Exam Limitations: no limitations (DONNA CAMACHO APRN) HPI - Skin General Initial Comments patient complains of lesions around her mouth x 2 days; reports pain with lesions that is not being relieved with motrin or tylenol. Patient reports hx of staph infections involving her face also Occurred At: home Onset: Rapid Duration: other (2 days) Location: face Possible Cause: no cause identified, other Associated Symptoms: DENIES: fever, flushing, headache, jaundice, malaise Hx of Similar Symptoms: Yes (DONNA CAMACHO APRN) Allergies: Coded Allergies: meperidine (Verified Allergy, Intermediate, HIVES, 07/19/16) tramadol (Verified Adverse Reaction, Intermediate, VOMITING, 07/19/16) aspirin (Verified Adverse Reaction, Unknown, ULCER, 07/19/16) GASTRITIS codeine (Verified Adverse Reaction, Unknown, ULCER, 07/19/16) GERD prednisone (Verified Adverse Reaction, Unknown, CHEMICAL IMBALANCE, 07/19/16 ) Past History Past Medical History ENMT: allergies, ear infections, sinusitis GI: IBS, ulcers Female: UTI (HERMELINDA CHO MD) Pt denies signifigant PMH (DONNA CAMACHO APRN) Surgical History General: gallbladder Joint: carpal tunnel (HERMELINDA CHO MD) Vaccines Hx Influenza Vaccination: Yes Hx Pneumococcal Vaccination: No Hx Tetanus, Diptheria, Pertuss: Yes (HERMELINDA CHO MD) Review of Systems Eyes General: DENIES: burning, exudate, pain Lids/Accessories: DENIES: swelling (DONNA CAMACHO APRN) ENMT Ears: DENIES: pain Hearing: DENIES: tinnitus Balance: DENIES: vertigo Sinuses: DENIES: congestion, pain, rhinorrhea Mouth/Throat: DENIES: scratchy throat, sore throat (DONNA CAMACHO APRN) Cardiovascular Cardiac: DENIES: chest pain (DONNA CAMACHO APRN) Pulmonary Respiratory: DENIES: cough, dyspnea, pleuritic chest pain, tachypnea (DONNA CAMACHO APRN) GI Upper Abdomen: DENIES: nausea, pain Lower Abdomen: DENIES: diarrhea, pain (DONNA CAMACHO APRN) General: DENIES: dysuria (DONNA CAMACHO APRN) Musculoskeletal General: pain, DENIES: cramps (DONNA CAMACHO APRN) Physical Exam General General Nourishment: well nourished, well developed, appears stated age, no acute distress Vitals and Pain (DONNA CAMACHO APRN) Vitals and Pain Weight: Kilograms: 86.100 Height (feet): 5 Height (inches): 5.00 Triage Pain Scale: (HERMELINDA CHO MD) Normal Exams: Head: Normocephalic w/o trauma Eyes: Pupils are PERRLA w/ EOMI, No scleral icterus, irritation, or foreign bodies noted Chest/Resp: Clear all fortune, with good airflow, and symmetry bilaterally CV: Regular rate and rhythm, without murmur or gallop, Pulses 2+ all extremities, capillary refill, <2 seconds all ext., no pedal edema noted Abdomen: Bowel sounds positive, soft, non-tender, non-distended, no hepatosplenomegaly, masses or bruits noted Lymphatic: No lymphadenopathy, or lymphedema noted Musculoskeletal: No tenderness, or deformity noted, good range of motion, all extremities (DONNA CAMACHO APRN) Progress Results/Orders Orders Procedure Category Date Status Time Iv Lock (Ed Only) EDM 07/19/16 Transmitted 21:52 Fentanyl (Fentanyl) PHA 07/19/16 Complete 22:00 Ondansetron Inj PHA 07/19/16 Complete (Zofran) 22:00 Normal Saline (Normal PHA 07/19/16 Complete Saline Iv) 22:00 Cbc W/Auto LAB 07/19/16 Complete Diff-Reflex Manual Cmp - Comprehensive LAB 07/19/16 Complete Metabolic Ua, Dip Wreflex LAB 07/19/16 Complete Microsc & Dedicated Owner Operator 21:52 LAB 07/19/16 Complete Qualitative, Urine 21:52 Lactate - Lactic Acid LAB 07/19/16 Complete Strep A Antigen Screen LAB 07/19/16 Complete 22:12 Group A Strep Culture GABBI 07/19/16 Complete 23:05 (DONNA CAMACHO APRN) Lab Results Laboratory Tests Test 07/19/16 22:39 07/19/16 22:47 07/19/16 23:15 White Blood Count 7.0T/MM3 Red Blood Count 4.42M/MM3 Hemoglobin 12.8GM/DL Hematocrit 37.5% Mean Corpuscular Volume 84.8UM3 Mean Corpuscular Hemoglobin 29.0UUG Mean Corpuscular Hemoglobin Concent 34.1GM/DL RDW Standard Deviation 37.6FL Platelet Count 262T/MM3 Mean Platelet Volume 9.1UM3 Immature Granulocyte % (Auto) 0.1% Neutrophils (%) (Auto) 44.1% Lymphocytes (%) (Auto) 44.8% Monocytes (%) (Auto) 8.3% Eosinophils (%) (Auto) 2.4% Basophils (%) (Auto) 0.3% Absolute Immature Granulocyte (auto 0.01T/MM3 Absolute Neutrophils (auto) 3.1T/MM3 Absolute Lymphocytes (auto) 3.1T/MM3 Absolute Monocytes (auto) 0.6T/MM3 Absolute Eosinophils (auto) 0.2T/MM3 Absolute Basophils (auto) 0.0T/MM3 Turbidity < 20 Sodium Level 138MEQ/L Potassium Level 4.3MEQ/L Chloride Level 104MEQ/L Carbon Dioxide Level 26MEQ/L Anion Gap 8MEQ/L Blood Urea Nitrogen 9.0MG/DL Creatinine 0.5MG/DL Glomerular Filtration Rate Calc 147 BUN/Creatinine Ratio 18RATIO Glucose Level 99MG/DL Calculated Osmolality 265MOSM/KG Calcium Level 9.1MG/DL Total Bilirubin 0.60MG/DL Icterus Index < 2 Aspartate Amino Transf (AST/SGOT) 23U/L Alanine Aminotransferase (ALT/SGPT) 30U/L Alkaline Phosphatase 62U/L Total Protein 7.1G/DL Albumin 4.0G/DL Globulin 3.1G/DL Albumin/Globulin Ratio 1.3RATIO Plasma Lactate 0.9MMOL/L Chemistry Specimen Hemolysis 46 Group A Streptococcus Screen Negative Urine Collection Type Voided-not cc-midstr Urine Color Yellow Urine Turbidity Clear Urine pH 7.0 Urine Specific [place] 1.010 Urine Protein Negative Urine Glucose (UA) Negative Urine Ketones Negative Urine Blood Negative Urine Nitrite Negative Urine Bilirubin Negative Urine Urobilinogen 0.2EU/DL Urine Leukocyte Esterase Negative Urinalysis Comment Microscopic not ind. Urine Test Negative (DONNA CAMACHO APRN) Medications Current ED Medications Fentanyl (Fentanyl) 50 mcg O ONCE IV Last administered on 07/19/16 22:41; Start 07/19/16 at 22:00; Stop 07/19/16 at 22:01; Status DC Ondansetron HCl 4 mg 4 mg O ONCE IV Last administered on 07/19/16 22:41; Start 07/19/16 at 22:00; Stop 07/19/16 at 22:01; Status DC Sodium Chloride (Normal Saline IV) 1,000 ml @ 1,000 mls/hr Q1H ONCE IV Last administered on 07/19/16 22:41; Start 07/19/16 at 22:00; Stop 07/19/16 at 22:59; Status DC (DONNA CAMACHO APRN) HERMELINDA CHO MD Jul 19, 2016 21:31 DONNA CAMACHO APRN Jul 20, 2016 00:00
--- OUTSIDE RECORDS SUMMARY | 2016-07-19 21:57 | XMS REPORT | Continuity of Care Document ---
Author Author [facility] Organization [facility] Address Unknown Phone Unavailable Support Name Relationship Address Phone CLIENT, BILLING Caregiver Unknown Unavailable JOSIAH MENDIETA Caregiver [facility] [address] [place] [address] ELVA BATES Next Of Kin [address] [place] [address] Insurance Providers Payer Name Policy Number Subscriber [...] F (96.8 - 99.1) Temperature (Calculated Celsius) 37.05509 degrees C (36.0 - 37.3) Pulse Rate [...] Report January 08, 2012 9:58am REFERENCE LAB [id number] - Lipase May 29, 2014 9:54pm 63 [...] Has specimen been collected/obtained? Y Urine Specific [place] May 29, 2014 9:40pm 1.015 - Has [...] N 4.5-11.0 Name: CHICHO BATES Unit #: [id number] : 1985 Sex: F Loc / Svc: ED DOS: 05/29/14 Signed Report #: [id number] DIAGNOSTIC IMAGING REPORT TYPE OF EXAM: CT [...] Encounters Encounter Location Date/Time Departed Emergency Room [facility] 08/23/14 7:02pm Departed Emergency Room [facility] 05/29/14 4:35pm
--- OUTSIDE RECORDS SUMMARY | 2016-07-19 21:57 | XMS REPORT | Continuity of Care Document ---
Author Author [facility] Organization [facility] Address Unknown Phone Unavailable Support Name Relationship Address Phone CRISTINE AMARO M.D. Caregiver [facility] [address] [place], [place] [id number] JAZZY CROSS Next Of Kin [address] NO ONE ELSE 11/23/14 [place] [address] [employer] Insurance Providers Payer Name Policy Number [...] F (96.0 - 99.9) Temperature (Calculated Celsius) 36.57179 degrees C Temperature Source Oral Pulse Pulse [...] NEGATIVE SOURCE: URINE, CLEAN CATCH Urine Specific [place] November 23, 2014 9:32pm 1.020 1.005-1.030 SOURCE [...] Location Date/Time Departed Emergency Room [facility] 11/23/14 8:52pm Recent Diagnosis
--- OUTSIDE RECORDS SUMMARY | 2016-07-19 21:57 | XMS REPORT | Continuity of Care Document ---
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 Type Provider Facility Loc./Unit Complaint [id number] 07/04/2016 15:11:00 [facility] Unknown [id number] 03/25/2016 14:04:00 [facility] Unknown [id number] 01/10/2014 10:37:00 [facility] Unknown [id number] 11/25/2013 08:54:00 [facility] Unknown
--- OUTSIDE RECORDS SUMMARY | 2016-07-19 21:57 | XMS REPORT | Continuity of Care Document ---
Author Author [facility] Organization [facility] Address Unknown Phone Unavailable Support Name Relationship Address Phone JOSIAH MENDIETA Caregiver [facility] [address] [place] [address] FRANCIA GOMES MD Caregiver [address] [place] [address] [place] [phone] ELVA BATES Next Of Kin [address] [place] [address] Insurance Providers Payer Name Policy Number Subscriber [...] F (96.8 - 99.1) Temperature (Calculated Celsius) [phone] degrees C (36.0 - 37.3) Pulse Rate [...] Report January 08, 2012 9:58am [facility] [id number] - Lipase May 29, 2014 9:54pm 65 [...] Has specimen been collected/obtained? Y Urine Specific [place] May 29, 2014 9:40pm 1.015 - Has [...] Encounters Encounter Location Date/Time Registered Emergency Room [facility] 05/29/14 4:35pm Recent Diagnosis
[2016-07-19] MEDS ORDERED: ONDANSETRON 4mg/2ml INJECTION IV ONE (22:00)
[2016-07-19] MEDS ORDERED: NORMAL SALINE 1,000 ML IV ONE (22:00)
[2016-07-19] MEDS ORDERED: FENTANYL 100mcg/2ml INJECTION IV ONE (22:00)
[2016-07-19 22:44] LABS: BASOPHILS % (AUTO) 0.3 % (0-2); EOSINOPHILS # (AUTO) 0.2 T/MM3 (0-0.5); EOSINOPHILS % (AUTO) 2.4 % (0-4); HCT - HEMATOCRIT 37.5 % (36-46); HGB - HEMOGLOBIN 12.8 GM/DL (12-16); IMMATURE GRANULOCYTE # (AUTO) 0.01 T/MM3 (0.00-0.03); IMMATURE GRANULOCYTE % (AUTO) 0.1 % (0.0-0.5); LYMPHOCYTES # (AUTO) 3.1 T/MM3 (1-4.8); LYMPHOCYTES % (AUTO) 44.8 % (23-45); MEAN CORPUSCULAR HGB CONC(MCHC 34.1 GM/DL (31-37); MEAN CORPUSCULAR VOLUME 84.8 UM3 (80-100); MEAN PLATELET VOLUME 9.1 UM3 (9.4-12.4); MONOCYTES # (AUTO) 0.6 T/MM3 (0-0.8); MONOCYTES % (AUTO) 8.3 % (0-9.0); NEUTROPHILS #(AUTO)-ABSOLUTE 3.1 T/MM3 (1.8-7.7); NEUTROPHILS % (AUTO) 44.1 % (33-66); RED BLOOD COUNT 4.42 M/MM3 (4.00-5.20)
[2016-07-19 22:53] LABS: LACTATE - LACTIC ACID 0.9 MMOL/L (0.6-2.2)
[2016-07-19] MEDS ORDERED: LEVO500T88 (23:04)
--- NOTE | 2016-07-19 23:08 | NUR ---
REPORT GIVEN TO JOHNNY RN, CARE ASSUMED.
[2016-07-19 23:22] LABS: BLOOD, URINE NEGATIVE (NEGATIVE); COLOR,URINE YELLOW (YELLOW); LEUKOCYTE ESTERASE ,URINE NEGATIVE (NEGATIVE); NITRITE,URINE NEGATIVE (NEGATIVE); UROBILINOGEN,URINE 0.2 EU/DL (NORMAL)
[2016-07-19 23:25] LABS: ALBUMIN/GLOBULIN RATIO 1.3 RATIO (1.1-2.2); ALKALINE PHOSPHATASE 62 U/L (38-126); ALT (SGPT) 30 U/L (9-52); ANION GAP 8 MEQ/L (5-15); AST (SGOT) 23 U/L (14-36); BUN/CREATININE RATIO 18 RATIO (6-26); CALCIUM 9.1 MG/DL (8.4-10.2); CHLORIDE 104 MEQ/L (98-107); CO2 - CARBON DIOXIDE 26 MEQ/L (22-30); CREATININE 0.5 MG/DL (0.7-1.2); GLOMERULAR FILTRATION RATE 147; GLUCOSE 99 MG/DL (65-110); POTASSIUM 4.3 MEQ/L (3.6-5); SODIUM 138 MEQ/L (134-144); TOTAL PROTEIN 7.1 G/DL (6.3-8.2)
[2016-07-20] MEDS ORDERED: ACYC800T PO (00:12)
[2016-07-20] MEDS ORDERED: ONDA4TAB7 PO (00:12)
[2016-07-20 00:30] VITALS: BP 117/75; PULSE 83; RESP 17; TEMP 98.6; O2SAT 97
== END 2016-07-20 00:30 | disposition home or self-care (01) ==
LOC: ED 20:38
DX: B34.9 Viral infection, unspecified (principal)
CPT/HCPCS: 80053; 81003; 81025; 83605; 85025; 87081; 87430; 96361; 96374; 96375; 99284; J2405; J3010; J7030